=== PATIENT | female | born 1975 | race Two or more races ===

== ENCOUNTER 2018-06-18 23:41 | Emergency (ER) | payer OTHER ==
[~2018-06-18] VITALS: Ht 152.4 cm; Wt 79.4 kg
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
[2018-06-19] MEDS ORDERED: LORAZEPAM 1 MG TABLET ONE (00:12)
--- NOTE | 2018-06-19 00:20 | NUR ---
Pt ambulated to the BR. urine sample collected and sent to lab. Labs drawn. EKG done
[2018-06-19] MEDS ORDERED: LORAZEPAM 1 MG TABLET PO ONE (00:30)
[2018-06-19 00:39] LABS: BASOPHILS # (AUTO) 0.1 /CMM (0.0-0.2); BASOPHILS % (AUTO) 0.7 % (0.0-2.0); EOSINOPHILS % (AUTO) 0.2 % (0.0-6.0); HEMATOCRIT 42 % (33-45); HEMOGLOBIN 13.7 g/dL (11.5-14.8); LYMPHOCYTES # (AUTO) 2.5 /CMM (0.8-4.8); LYMPHOCYTES % (AUTO) 21.1 % (20.0-44.0); MEAN CORPUSCULAR HGB CONC 33 g/dl (31.0-36.0); MEAN CORPUSCULAR VOLUME 90 fL (82-100); MONOCYTES # (AUTO) 0.8 /CMM (0.1-1.30); MONOCYTES % (AUTO) 6.6 % (2.0-12.0); NEUTROPHILS # (AUTO) 8.3 /CMM (1.8-8.9); NEUTROPHILS % (AUTO) 71.4 % (43.0-81.0); PLATELET COUNT (AUTO) 297 /CMM (150-450); RED BLOOD CELL COUNT(AUTO) 4.65 MIL/uL (4.0-5.2); WHITE BLOOD COUNT (AUTO) 11.6 K/uL (4.3-11.0)
[2018-06-19 00:49] LABS: CALCIUM, SERUM 9.3 mg/dL (8.5-10.1); CREATININE 0.9 mg/dL (0.6-1.3); POTASSIUM 3.7 mmol/L (3.5-5.1)
--- NOTE | 2018-06-19 00:55 | NUR ---
Pt states her pain is gone completely. Family at BS
[2018-06-19 01:51] VITALS: BP 150/92
--- NOTE | 2018-06-19 01:53 | NUR ---
Patient discharged to home in stable condition. Written and verbal after care instructions given. Patient verbalizes understanding of instruction.IV removed. Catheter intact and site benign. Pressure and 4x4 applied to site. No bleeding noted. Pt ambulatory with a steady gait
== END 2018-06-19 01:52 | disposition home or self-care (01) ==
LOC: ER 23:44
DX: F41.9 Anxiety disorder, unspecified (principal); Y04.0XXA Assault by unarmed brawl or fight, initial encounter; Y92.89 Other specified places as the place of occurrence of the external cause; Y93.89 Activity, other specified; Y99.8 Other external cause status
CPT/HCPCS: 36415; 71045-TC; 80048-TC; 80305; 84443-TC; 84484-TC; 84703-TC; 85025-TC; 85730-TC; A4606; Z7610